=== PATIENT | female | born 1935 | race Caucasian/White ===

== ENCOUNTER → 2017-04-21 | Outpatient (CLI) | payer MEDICARE | END | disposition home or self-care (01) | LOC: GMAB 11:01 | PROVIDERS: ATTEND Family Medicine | DX: E03.9 Hypothyroidism, unspecified (principal) ==

== ENCOUNTER → 2017-06-07 | Outpatient (CLI) | payer MEDICARE ==
--- NOTE | 2017-06-07 13:15 | US ---
EXAM DESCRIPTION: Soft Tissue,Head/Neck CLINICAL HISTORY: 82 years Female, THYROID NODULE COMPARISON: None. FINDINGS: Thyroid sonography demonstrates the right lobe 3.1 x 1.1 x 1.7 cm and the left lobe 3.4 x 1.5 x 1.6 cm with a 2 mm isthmus. Overall the thyroid is small to normal in size. On the right in the mid thyroid anteriorly and laterally is a wider than tall 7 x 6 x 6 mm isoechoic nodule. A second mildly hypoechoic 9 x 5 x 4 mm nodule in the lower pole is present that is wider than tall. On the left, in the lower pole is a hypoechoic elongated 2.1 x 0.8 x 0.6 cm homogeneous solid nodule. A second small 10 x 5 x 4 mm hypoechoic solid nodule in the upper pole is noted. IMPRESSION: 1. Slightly small to lower range of normal thyroid gland with a slightly heterogeneous appearance. 2. There are multiple subcentimeter nodules two on the right and one on the left with one elongated 2.1 cm hypoechoic nodule on the left that has transverse diameters of 6 x 8 mm. 3. One-year follow-up examination to reassess particularly the left lobe of the thyroid in the area of the hypoechoic elongated nodule is recommended. Electronically signed by: Hardik Chambers MD 06/07/2017 1:13 PM CDT
== END | disposition home or self-care (01) ==
LOC: US 08:31
PROVIDERS: ATTEND Family Medicine
DX: E04.9 Nontoxic goiter, unspecified (principal)

== ENCOUNTER → 2017-09-20 | Outpatient (CLI) | payer MEDICARE ==
--- NOTE | 2017-09-21 15:15 | MAM ---
EXAM DESCRIPTION: Screening Mammogram,Bilateral: Digital Mammography CLINICAL HISTORY: 82 years Female SCREENING . No complaints. No family history breast cancer. Postmenopausal. Taking HRT 5 or more years ago. COMPARISON: 2-D digital screening bilateral studies 10/15/2015 and 10/08/2014. No prior reports available. TECHNIQUE: Bilateral CC and MLO projection full-field images, 2-D digital screening mammographic technique. CAD was utilized. FINDINGS: The breast parenchymal density pattern is: Scattered areas of fibroglandular density. No skin thickening or nipple retraction bilateral microcalcifications and coarse calcifications. Bilateral axillary lymph nodes. Bilateral intramammary lymph nodes. Bilateral axillary breast tissue. No focal, stellate mass or density, focal asymmetry , and no suspicious microcalcifications bilaterally. Stable mammograms compared to the prior study, taking into account differences in mammographic technique. IMPRESSION: BI-RADS CATEGORY: 2 - BENIGN FINDINGS. FOLLOW UP: Routine digital bilateral screening, one year interval from August 2017. Written communication explaining the IMPRESSION and follow-up, will be mailed to the patient and referring health care provider. According to the [employer], yearly mammograms are recommended starting at age 40 and continuing as long as a woman is in good health. Any breast change noted on a breast self-exam should be reported promptly to the patient's healthcare provider. Breast MRI is recommended for women with an approximately 20-25% or greater lifetime risk of breast cancer, including women with a strong family history of breast or ovarian cancer and women who have been treated for Hodgkin's disease. A negative mammographic report should not delay tissue diagnosis in patients with significant clinical history or physical findings. Extremely dense breast tissue limits the sensitivity of digital mammography. Electronically signed by: Garfield Goldstein MD 09/21/2017 3:13 PM [facility]
== END | disposition home or self-care (01) ==
LOC: MAMMO 09:42
PROVIDERS: ATTEND Family Medicine
DX: Z12.31 Encounter for screening mammogram for malignant neoplasm of breast (principal)

== ENCOUNTER → 2017-12-13 | Outpatient (CLI) | payer MEDICARE ==
--- NOTE | 2017-12-16 07:18 | US ---
EXAM DESCRIPTION: Thyroid CLINICAL HISTORY: 82 years Female, THYROID NODULE COMPARISON: None. FINDINGS: The right thyroid lobe measures 3.7 cm in length. It is of diffusely heterogeneous internal echogenicity and contains a 6 mm slightly hypoechoic solid nodule in its inferior pole without internal calcification. No color Doppler images of this small nodule were obtained, but the nodule is unchanged in size and appearance from May,. The thyroid isthmus is not thickened. The left thyroid lobe measures 3.6 cm in length and is also diffusely heterogeneous internal echogenicity. It contains two solid, slightly hypoechoic nodules measuring up to 1.8 cm diameter, both without internal calcification or peripheral hypervascularity. Both left thyroid nodules are stable. No new nodule. IMPRESSION: Bilateral solid thyroid nodules as detailed above measuring up to 1.8 cm diameter, all stable from May,. Additional follow-up ultrasound in one year is recommended to document continued stability. Electronically signed by: Brayden Amaya MD 12/16/2017 7:17 AM [facility]
== END ==
LOC: US 14:39
PROVIDERS: ATTEND Family Medicine
DX: E04.9 Nontoxic goiter, unspecified (principal)

== ENCOUNTER → 2018-05-11 | Outpatient (CLI) | payer MEDICARE | LOC: GMAE 14:56 | PROVIDERS: ATTEND Family Medicine | DX: E03.9 Hypothyroidism, unspecified (principal) ==

== ENCOUNTER → 2018-12-18 | Outpatient (CLI) | payer MEDICARE ==
--- NOTE | 2018-12-18 11:51 | US ---
US THYROID CLINICAL STATEMENT: THYROID NODULE. No palpable mass. No prior thyroid surgery or medication. COMPARISON: None FINDINGS: Size right thyroid lobe: 2.7 x 1.2 x 1.2 cm Size left thyroid lobe: 3.3 x 0.8 x 0.8 cm Size isthmus: 0.1 cm Estimated total number of nodules greater than or equal to 1 cm: None. Heterogeneous echoes bilaterally. Nodule 1: Size: 0.9 x 0.6 and 0.4 cm Location: Left Mid Composition: solid or almost completely solid: 2 points Echogenicity: hypoechoic: 2 points Shape: wider than tall: 0 points Margins: smooth: 0 points Echogenic foci: none: 0 points ACR Total Points: 4; ACR TI-RADS risk category: TR4 - moderately suspicious nodule. Soft tissues around the thyroid gland show no evidence of dominant solid mass or distinct cyst. No parenchymal edema or large calcifications. No overlying skin changes. Normal vascularity. IMPRESSION: 1. Nodule 1: ACR TI-RADS 2017 Category TR4. Recommend: No further follow-up.. Recommendations based upon [employer] recommendations and ACR TI-RADS 2017 guidelines. Please see below*. 2. Soft tissue around the thyroid gland is unremarkable. *ACR TI-RADS 2017 Recommendations: TR1: No FNA or follow up TR2: No FNA or follow up TR3: FNA if >/= 2.5 cm, follow up if 1.5 - 2.4 cm in 1, 3, and 5 years TR4: FNA if >/= 1.5 cm, follow up if 1.0 - 1.4 cm in 1, 2, 3, and 5 years TR5: FNA if >/= 1.0 cm, follow up if 0.5 - 0.9 cm every year for 5 years ACR TI-RADS recommends that no more than two nodules with the highest ACR TI-RADS total point should be biopsied and no more than four nodules should be followed. These recommendations do not apply to patients with increased risk for thyroid cancer or patients with symptomatic thyroid disease. Electronically signed by: Garfield Goldstein MD 12/18/2018 11:48 AM [employer]
== END ==
LOC: US 08:00
PROVIDERS: ATTEND Family Medicine
DX: E04.9 Nontoxic goiter, unspecified (principal)

== ENCOUNTER → 2019-06-21 | Outpatient (CLI) | payer MEDICARE | LOC: GMAE 10:59 | PROVIDERS: ATTEND Family Medicine | DX: E03.9 Hypothyroidism, unspecified (principal); I10 Essential (primary) hypertension; E78.2 Mixed hyperlipidemia ==